=== PATIENT | male | born 1985 | race Caucasian/White ===

== ENCOUNTER 2017-09-18 10:13 | Emergency (ER) | payer OTHER ==
[~2017-09-18] VITALS: Ht 175.3 cm; Wt 74.8 kg
[~2017-09-18 10:13] MED LIST: CIPRO500 MG PO; FLAGYL500 MG PO; HYDROCODONE-AP1 EAC6 PO; LIORESAL 10 MG10 MG PO; ZOFRAN ODT4 MG PO
[2017-09-18] MEDS ORDERED: OXYCODONE HCL15 MG PO (10:28)
[2017-09-18 12:37] VITALS: BP 129/74
== END 2017-09-18 12:39 | disposition home or self-care (01) ==
LOC: M.ERS 10:13
DX: G89.29 Other chronic pain (principal); M54.5 Low back pain; K50.90 Crohn's disease, unspecified, without complications; Z88.0 Allergy status to penicillin; Z88.1 Allergy status to other antibiotic agents